=== PATIENT | male | born 1985 | race Caucasian/White ===

== ENCOUNTER 2018-05-24 17:45 | Inpatient (IN) | payer MEDICAID ==
[~2018-05-24] VITALS: Ht 175.3 cm; Wt 113.6 kg
[2018-05-24] MEDS ORDERED: morphine 4 MG/ML inj SYRINge IV ONE (21:45)
[2018-05-24 22:10] LABS: BASOPHILS # (AUTO) 0.1 X10'3 (0-0.2); MONOCYTES # (AUTO) 0.8 X10'3 (0-0.9)
--- NOTE | 2018-05-24 22:10 | NUR ---
VITALS UPDATED, IV PAIN MEDS GIVEN, PT REPORTS DECREASE IN PAIN FROM 7/10 TO 4/10 - XRAYS TAKEN, LABS DRAWN AND PENDING.
[2018-05-24 22:12] LABS: BASOPHILS % (AUTO) 0.6 % (0-1); EOSINOPHILS # (AUTO) 0.6 X10'3 (0-0.9); EOSINOPHILS % (AUTO) 4.5 % (0-6); HEMATOCRIT 42.2 % (42.0-52.0); HEMOGLOBIN 14.5 g/dl (14.0-17.9); LYMPHOCYTES # (AUTO) 1.8 X10'3 (1.1-4.8); LYMPHOCYTES % (AUTO) 12.9 % (21-51); MEAN CORPUSCULAR HEMOGLOBIN 31.2 PG (27.0-31.0); MEAN CORPUSCULAR HGB CONC 34.4 g/dL (33.0-36.5); MEAN CORPUSCULAR VOLUME 90.7 FL (78-98); MEAN PLATELET VOLUME 6.7 FL (7.4-10.4); MONOCYTES % (AUTO) 5.6 % (2-12); NEUTROPHILS # (AUTO) 10.9 X10'3 (1.8-7.7); NEUTROPHILS % (AUTO) 76.4 % (42-75); PLATELET COUNT 440 X10'3 (140-440); RED BLOOD COUNT 4.66 X10'6 (4.70-6.10); RED CELL DISTRIBUTION WIDTH 12.6 % (11.5-14.5); WHITE BLOOD COUNT 14.3 X10'3 (4.5-11.0)
[2018-05-24 22:19] LABS: ALANINE AMINOTRANSFERASE 38 U/L (12-78); ALBUMIN 3.7 G/DL (3.4-5.0); ALBUMIN/GLOBULIN RATIO 0.8 (1.1-1.5); ALKALINE PHOSPHATASE 89 IU/L (46-116); ANION GAP 12 (8-16); ASPARTATE AMINO TRANSFERASE 13 U/L (10-37); BILIRUBIN,TOTAL 0.3 MG/DL (0.1-1.0); BLOOD UREA NITROGEN 9 MG/DL (7-18); BUN/CREATININE RATIO 8.3 (5.4-32.0); CALCIUM 9.7 MG/DL (8.5-10.1); CHLORIDE 102 MMOL/L (99-107); CREATININE 1.08 MG/DL (0.60-1.10); GLUCOSE 90 MG/DL (70-104); SODIUM 138 MMOL/L (135-145); TOTAL CARBON DIOXIDE 23.7 MMOL/L (24-32); TOTAL PROTEIN 8.2 G/DL (6.4-8.2); eGFR 80 ML/MIN
[2018-05-24 22:24] LABS: D-DIMER 1.16 MG/L FEU (0-0.50)
--- NOTE | 2018-05-24 22:45 | NUR ---
CTA DELAYED SECONDARY TO PROBLEM WITH INJECTOR. STAFF CURRENTLY ATTMEPTING TO FIX IT
[2018-05-24] MEDS ORDERED: ALBU6.7H INH (23:01)
[2018-05-24] MEDS ORDERED: AZIT250T2 PO (23:01)
--- NOTE | 2018-05-24 23:16 | NUR ---
PT RESTING COMFORTABLY ON GURNEY. NO DISTRESS NOTED. WILL CONTINUE TO MONITOR. STILL AWAITING CTA
[2018-05-24] MEDS ORDERED: iohexol 350MG/ML 100ml bottle IV ONE (23:46)
[2018-05-25] MEDS ORDERED: ondansetron/PF 4mg/2ml inj IV ONE (00:55)
[2018-05-25] MEDS ORDERED: HYDROcodone/acetaminophen 10/325mg tab PO ONE (00:55)
[2018-05-25] MEDS ORDERED: levoFLOXACIN-Levaquin 750MG/D5 150 ML IV ONE (01:15)
[2018-05-25] MEDS ORDERED: vancomycin/NS 1 GM ADD-VANTAGE 250 ML IV ONE (01:35)
[2018-05-25] MEDS ORDERED: NO HOME MEDS (01:41)
[2018-05-25] MEDS: [UNRECOGNIZED DRUG - OTHER] IV SCH ×2 (02:00→03:00)
[2018-05-25] MEDS: VANCOMYCIN IV SCH ×2 (02:00→03:00)
[2018-05-25] MEDS: SODIUM CHLORIDE IV SCH ×2 (02:00→03:00)
--- NOTE | 2018-05-25 02:05 | NUR ---
IV ABX INFUSING. PT GIVEN WARM BLANKET AND PILLOW. UPDATED ON PLAN OF CARE. PT EDUCATED ON HOW TO ADJUST BED AND IS TOLD HE CAN TURN LIGHTS OFF\ON HE WISHES. PT CURRENTLY AWAITING HOSPITALIST.
[2018-05-25] MEDS ORDERED: ondansetron/PF 4mg/2ml inj IV PRN (02:55)
[2018-05-25] MEDS ORDERED: acetaminophen 325mg tablet PO PRN (02:55)
[2018-05-25] MEDS ORDERED: mag hydrox/Alum hydrox/simeth 30ml oral suspension PO PRN (02:55)
[2018-05-25] MEDS ORDERED: magnesium hydroxide 30ml (MOM) UD suspension PO PRN (02:55)
--- NOTE | 2018-05-25 03:08 | NUR ---
ISO CART OUTSIDE OF ROOM - HEPA FILTER PLACED IN ROOM - PT GIVEN FOOD
[2018-05-25] MEDS ORDERED: CefTRIAXone 2gm/D5W 50ml 50 ML IV ONE (03:25)
--- NOTE | 2018-05-25 04:56 | NUR ---
PT RESTING COMFORTABLY, VISITOR AT BEDSIDE. WILL CONTINUE TO MONITOR.
[2018-05-25] MEDS ORDERED: SODIUM CHLORIDE IV SCH (05:36)
[2018-05-25] MEDS ORDERED: VANCOMYCIN IV SCH (05:36)
[2018-05-25] MEDS ORDERED: [UNRECOGNIZED DRUG - OTHER] IV SCH (05:36)
--- NOTE | 2018-05-25 06:25 | NUR ---
PT GIVEN LARGE PITCHER OF WATER AND UPDATED ON PLAN OF CARE. 2ND BAG OF VANCO NOW INFUSING.
--- NOTE | 2018-05-25 09:46 | NUR ---
PT C/O PAIN. RICHARD CASSIDY AND PWOER PLACED CALLS TO DR WADSWORTH X2 AWAITING HIM TO CALL BACK
--- NOTE | 2018-05-25 09:49 | NUR ---
PER SASKIA MOODY PT OFF ISO. HEPA FILTER TAKEN OUT OF ROOM
[2018-05-25 10:00] VITALS: BP 128/69
[2018-05-25] MEDS ORDERED: magnesium 4gm in 100ml NS 100 ML IV PRN (10:10)
[2018-05-25] MEDS ORDERED: potassium Cl 20 mEq SR tablet PO PRN ×2 (10:10)
[2018-05-25] MEDS ORDERED: potassium Cl 40MEQ/NS 500ml 500 ML IV PRN ×2 (10:10)
[2018-05-25] MEDS ORDERED: magnesium Cl slow-release 64mg tablet PO PRN (10:10)
--- NOTE | 2018-05-25 11:06 | NUR ---
verbal order from [facility] for pain meds put in.
[2018-05-25 11:21] LABS: HIV ANTIBODY 1&2 RAPID NON-REACTIVE (Neg)
[2018-05-25] MEDS: HYDROcodone/acetaminophen 5mg/325mg tablet PO PRN ×3 (12:07→23:37)
[2018-05-25] MEDS: clindamycin 600mg/D5W 50ml 50 ML IV SCH ×3 (13:02→23:24)
[2018-05-25] MEDS: normal saline 1000ml 1,000 ML IV SCH ×2 (13:20→23:20)
[2018-05-25] MEDS: CefTRIAXone 2gm/D5W 50ml 50 ML IV SCH (14:05)
[2018-05-25 18:00] VITALS: BP 123/55
[2018-05-25] MEDS: lactobacillus rhamnosus 10,000 MMU CELLS/CAPSULE PO SCH (20:13)
[2018-05-26] VITALS: BP 127/70
[2018-05-26 06:22] LABS: BASOPHILS % (AUTO) 0.3 % (0-1); EOSINOPHILS # (AUTO) 0.7 X10'3 (0-0.9); EOSINOPHILS % (AUTO) 6.8 % (0-6); HEMATOCRIT 37.5 % (42.0-52.0); HEMOGLOBIN 13.1 g/dl (14.0-17.9); LYMPHOCYTES # (AUTO) 1.6 X10'3 (1.1-4.8); LYMPHOCYTES % (AUTO) 14.6 % (21-51); MEAN CORPUSCULAR HEMOGLOBIN 31.2 PG (27.0-31.0); MEAN CORPUSCULAR VOLUME 89.1 FL (78-98); MEAN PLATELET VOLUME 6.8 FL (7.4-10.4); MONOCYTES # (AUTO) 0.9 X10'3 (0-0.9); MONOCYTES % (AUTO) 8.8 % (2-12); NEUTROPHILS # (AUTO) 7.6 X10'3 (1.8-7.7); NEUTROPHILS % (AUTO) 69.5 % (42-75); PLATELET COUNT 413 X10'3 (140-440); RED BLOOD COUNT 4.21 X10'6 (4.70-6.10); RED CELL DISTRIBUTION WIDTH 11.6 % (11.5-14.5); WHITE BLOOD COUNT 10.8 X10'3 (4.5-11.0)
--- NOTE | 2018-05-26 06:30 | NUR ---
Problems reprioritized. Patient report given, questions answered & plan of care reviewed with Elsi HDZ.
[2018-05-26 06:39] LABS: ALANINE AMINOTRANSFERASE 28 U/L (12-78); ALBUMIN 3.1 G/DL (3.4-5.0); ALBUMIN/GLOBULIN RATIO 0.8 (1.1-1.5); ALKALINE PHOSPHATASE 77 IU/L (46-116); ANION GAP 10 (8-16); ASPARTATE AMINO TRANSFERASE 10 U/L (10-37); BILIRUBIN,TOTAL 0.4 MG/DL (0.1-1.0); BLOOD UREA NITROGEN 8 MG/DL (7-18); BUN/CREATININE RATIO 7.8 (5.4-32.0); CHLORIDE 103 MMOL/L (99-107); CREATININE 1.02 MG/DL (0.60-1.10); GLUCOSE 82 MG/DL (70-104); SODIUM 136 MMOL/L (135-145); TOTAL CARBON DIOXIDE 23.5 MMOL/L (24-32); TOTAL PROTEIN 7.2 G/DL (6.4-8.2); eGFR 85 ML/MIN
[2018-05-26] MEDS: HYDROcodone/acetaminophen 5mg/325mg tablet PO PRN ×3 (07:18→22:32)
[2018-05-26] MEDS: CefTRIAXone 2gm/D5W 50ml 50 ML IV SCH (07:18)
[2018-05-26] MEDS: lactobacillus rhamnosus 10,000 MMU CELLS/CAPSULE PO SCH ×2 (07:18→20:44)
[2018-05-26 07:45] VITALS: BP 113/63
[2018-05-26] MEDS: clindamycin 600mg/D5W 50ml 50 ML IV SCH ×2 (08:27→15:50)
[2018-05-26] MEDS: normal saline 1000ml 1,000 ML IV SCH ×3 (08:29→20:44)
[2018-05-26 11:22] VITALS: BP 119/61
[2018-05-26 18:00] VITALS: BP 105/68
--- NOTE | 2018-05-26 18:30 | NUR ---
Patient in room [facility]. I have received report from Elsi HDZ and had the opportunity to ask questions and assume patient care.
--- NOTE | 2018-05-26 18:47 | NUR ---
Problems reprioritized. Patient report given, questions answered & plan of care reviewed with Roberto Carlos HDZ.
[2018-05-26 22:14] LABS: CLARITY,URINE CLEAR (Clear); COLOR,URINE YELLOW (Yellow); GLUCOSE, URINE NEGATIVE (Neg); KETONES,URINE TRACE mg/dl (Neg); LEUKOCYTE ESTERASE ,URINE NEGATIVE (Neg); NITRITES, URINE NEGATIVE (Neg); OCCULT BLOOD,URINE MODERATE (Neg); PH,URINE 5.5 (4.8-8.0); PROTEIN,URINE NEGATIVE (Neg); UROBILINOGEN,URINE 0.2 E.U/dL (0.2-1.0)
[2018-05-26 22:15] LABS: UA COLLECTION TYPE CLN CATCH MIDSTREAM
[2018-05-26 22:33] LABS: BACTERIA,URINE NONE SEEN /HPF (Neg); MUCUS STRANDS FEW /LPF (Neg); SQUAMOUS EPITHELIAL CELL,UR FEW /LPF (FEW); WBC,URINE 0-4 /HPF (0-4)
[2018-05-26 22:56] LABS: URINE AMPHETAMINE SCREEN NEGATIVE (Neg); URINE BARBITUATE SCREEN NEGATIVE (Neg); URINE BENZODIAZEPINES SCREEN NEGATIVE (Neg); URINE CANNABINOID SCREEN POSITIVE (Neg); URINE COCAINE SCREEN NEGATIVE (Neg); URINE METHADONE SCREEN NEGATIVE (Neg); URINE OPIATE SCREEN POSITIVE (Neg); URINE PHENCYCLIDINE SCREEN NEGATIVE (Neg)
[2018-05-26 23:56] VITALS: BP 123/68
[2018-05-27] MEDS: clindamycin 600mg/D5W 50ml 50 ML IV SCH ×2 (00:35→09:15)
[2018-05-27] MEDS: HYDROcodone/acetaminophen 5mg/325mg tablet PO PRN (05:25)
[2018-05-27 05:51] LABS: BASOPHILS # (AUTO) 0.1 X10'3 (0-0.2); BASOPHILS % (AUTO) 0.6 % (0-1); EOSINOPHILS % (AUTO) 10.6 % (0-6); HEMATOCRIT 35.9 % (42.0-52.0); HEMOGLOBIN 12.3 g/dl (14.0-17.9); LYMPHOCYTES # (AUTO) 1.9 X10'3 (1.1-4.8); MEAN CORPUSCULAR HEMOGLOBIN 30.8 PG (27.0-31.0); MEAN CORPUSCULAR HGB CONC 34.3 g/dL (33.0-36.5); MEAN PLATELET VOLUME 7.2 FL (7.4-10.4); MONOCYTES # (AUTO) 0.9 X10'3 (0-0.9); MONOCYTES % (AUTO) 9.9 % (2-12); NEUTROPHILS # (AUTO) 5.2 X10'3 (1.8-7.7); NEUTROPHILS % (AUTO) 57.9 % (42-75); PLATELET COUNT 397 X10'3 (140-440); RED BLOOD COUNT 3.99 X10'6 (4.70-6.10); RED CELL DISTRIBUTION WIDTH 11.5 % (11.5-14.5); WHITE BLOOD COUNT 9.1 X10'3 (4.5-11.0)
[2018-05-27 06:00] LABS: ALANINE AMINOTRANSFERASE 24 U/L (12-78); ALBUMIN 2.7 G/DL (3.4-5.0); ALBUMIN/GLOBULIN RATIO 0.7 (1.1-1.5); ALKALINE PHOSPHATASE 80 IU/L (46-116); ANION GAP 10 (8-16); ASPARTATE AMINO TRANSFERASE 10 U/L (10-37); BILIRUBIN,TOTAL 0.2 MG/DL (0.1-1.0); BLOOD UREA NITROGEN 15 MG/DL (7-18); BUN/CREATININE RATIO 13.2 (5.4-32.0); CALCIUM 8.8 MG/DL (8.5-10.1); CHLORIDE 105 MMOL/L (99-107); CREATININE 1.14 MG/DL (0.60-1.10); GLUCOSE 114 MG/DL (70-104); POTASSIUM 3.7 MMOL/L (3.5-5.1); SODIUM 139 MMOL/L (135-145); TOTAL CARBON DIOXIDE 24.1 MMOL/L (24-32); TOTAL PROTEIN 6.6 G/DL (6.4-8.2); eGFR 75 ML/MIN
--- NOTE | 2018-05-27 06:48 | NUR ---
Problems reprioritized. Patient report given, questions answered & plan of care reviewed with Declan HDZ.
--- NOTE | 2018-05-27 06:50 | NUR ---
Patient in room [facility] 348. I have received report from Roberto Carlos HDZ and had the opportunity to ask questions and assume patient care.
[2018-05-27 07:00] VITALS: BP 112/46
[2018-05-27] MEDS: CefTRIAXone 2gm/D5W 50ml 50 ML IV SCH (08:16)
[2018-05-27] MEDS: lactobacillus rhamnosus 10,000 MMU CELLS/CAPSULE PO SCH (08:16)
[2018-05-27 11:00] VITALS: BP 103/49
[2018-05-27 11:16] LABS: HBSAG SCREEN Negative (Negative); HEP A AB, IGM Negative (Negative); HEP B CORE AB, IGM Negative (Negative); HEPATITIS C ANTIBODY <0.1 s/co ratio (0.0-0.9)
[2018-05-27] MEDS ORDERED: LACT1CAP26 PO (12:45)
[2018-05-27] MEDS ORDERED: AMOX-580 PO (12:45)
--- NOTE | 2018-05-27 14:28 | NUR ---
Discharge instructions given to patient. Patient verbalized understanding of all instructions made. New prescription called in to [facility] c/o [facility], unit tender. Peripheral IV catheter removed, tip intact. Instructed patient to ensure he has all his belongings before leaving.
== END 2018-05-27 14:40 | disposition home or self-care (01) | DRG 139 ==
LOC: ER 17:46 → ED HOLD 05-25 02:51 → EDBEDREQ 05-25 10:21 → SUR 3N 05-25 11:31
PROVIDERS: ADMIT Internal Medicine; ATTEND Family Medicine
PROC: B32T1ZZ Computerized Tomography (CT Scan) of Left Pulmonary Artery using Low Osmolar Contrast (ICD-10-PCS; principal; 2018-05-24)
PROC: B3201ZZ Computerized Tomography (CT Scan) of Thoracic Aorta using Low Osmolar Contrast (ICD-10-PCS; 2018-05-24)
PROC: B32S1ZZ Computerized Tomography (CT Scan) of Right Pulmonary Artery using Low Osmolar Contrast (ICD-10-PCS; 2018-05-24)
DX: J18.1 Lobar pneumonia, unspecified organism (principal); R04.2 Hemoptysis; F17.210 Nicotine dependence, cigarettes, uncomplicated; F12.90 Cannabis use, unspecified, uncomplicated
CPT/HCPCS: 36415; 71045; 71275; 80053; 80074; 80305; 81001; 83605; 84484; 85025; 85379; 86703; 87040; 87070; 93005; 93306; 96365; 96368; 96375; 99285; G0378; J0696; J1956; J2270; J2405; J3370; J3490; J7030; Q9967